=== PATIENT | female | born 1960 | race Two or more races ===

== ENCOUNTER 2025-01-11 15:57 | Emergency (ER) | payer OTHER ==
[~2025-01-11] VITALS: Ht 160 cm; Wt 61.2 kg
[2025-01-11] MEDS ORDERED: PEPCID AC20 MG PO (16:26)
[2025-01-11] MEDS ORDERED: TOPROL XL25 M1 PO (16:26)
[2025-01-11] MEDS ORDERED: FAMOTIDINE/PF 20 MG/2 ML VIAL ONE (17:21)
[2025-01-11] MEDS ORDERED: BENZONATATE 100 MG CAPSULE PO ONE (17:30)
[2025-01-11] MEDS ORDERED: SUCRALFATE 1 G TABLET PO ONE (17:30)
[2025-01-11] MEDS ORDERED: FAMOTIDINE/PF 20 MG/2 ML VIAL IV ONE (17:30)
[2025-01-11 18:30] LABS: BASO % 0.3 % (0.1-1.2); EOS # 0.13 (0.04-0.54); EOS % 2.1 % (0.7-7.0); HEMATOCRIT 34.7 % (34.1-44.9); HEMOGLOBIN 11.3 g/dL (11.2-15.7); LYMPH # 1.51 (1.18-3.74); LYMPH % 24.4 % (19.3-53.1); MEAN CORPUSCULAR HEMOGLOBIN 27.8 pg (25.6-32.2); MONO # 0.67 (0.24-0.82); MONO % 10.8 % (4.7-12.5); NEUT # 3.84 (1.56-6.13); NEUT % 62.2 % (34.0-71.1); PLATELET COUNT 288 K/uL (163-369); RED BLOOD COUNT 4.07 M/uL (3.93-5.22); RED CELL DISTRIBUTION WIDTH 13.2 % (11.6-14.4)
[2025-01-11 19:20] LABS: INFLUENZA A AG NEGATIVE (NEGATIVE); INFLUENZA B AG NEGATIVE (NEGATIVE)
[2025-01-11 19:26] LABS: COVID-19 AG NEGATIVE (NEGATIVE)
[2025-01-11] MEDS ORDERED: BENZONATATE200 M1 PO (19:49)
[2025-01-11] MEDS ORDERED: CARAFATE1 GM PO (19:49)
== END 2025-01-11 20:20 | disposition home or self-care (01) ==
LOC: ER 16:54
PROVIDERS: General Practice
DX: R05.3 Chronic cough (principal); R05.9 Cough, unspecified; Z20.822 Contact with and (suspected) exposure to COVID-19; I10 Essential (primary) hypertension; Z88.0 Allergy status to penicillin; Z88.6 Allergy status to analgesic agent; Z91.013 Allergy to seafood